=== PATIENT | male | born 1990 | race Caucasian/White ===

== ENCOUNTER 2020-11-06 20:22 | Emergency (ER) | payer SELFPAY ==
--- NOTE | 2020-11-06 20:30 | ED EENT ---
History of Present Illness General Stated Complaint: FOREIGN BODY IN LEFT EYE History of Present Illness Date Seen by Provider: Nov 06, 2020 Time Seen by Provider: 20:30 Initial Comments 29-year-old male presents with something in his left eye since 3 AM. Work outdoors yesterday, but did not feel anything get into his eye or have any eye trauma. Denies any change of vision, tearing or drainage from his eye. States he can see something just below his pupil. Try to move it with a Q-tip at home but was unable. Does have some discomfort with opening and closing his eye. Allergies and Home Medications Allergies Coded Allergies: No Known Drug Allergies (Unverified , 11/06/20) Patient Home Medication List Home Medication List Reviewed: Yes Review of Systems Review of Systems Constitutional: no symptoms reported Eyes: See HPI; Denies Drainage; Foreign Body Sensation; Denies Inflammation, Denies Pain, Denies Photophobia Ears: No Symptoms Reported Past [id number] Hx Patient Social History Tobacco Use?: No Physical Exam Vital Signs Vital Signs - First Documented 11/06/20 20:27 Pulse 79 Resp 18 B/P (MAP) 157/91 (113) Pulse Ox 99 O2 Delivery Room Air Height, Weight, BMI Height: '" Weight: lbs. oz. kg; BMI Method: General Appearance: WD/WN, no apparent distress Eyes: left eye foreign body (lower central cornea- tiny black spec seen only w magnification); bilateral eye normal inspection, bilateral eye PERRL, bilateral eye EOMI Neurologic/Psychiatric: no motor/sensory deficits, alert, normal mood/affect, oriented x 3 Procedures/Interventions Eye : Location: left eye Eye FB Removal: removal w/ cotton swab Eye Irrigated w/ Saline (ccs): 5 Anesthesia (gtts): Tetracaine Intraocular Pressure: (L) eye (MM) Progress/Results/Core Measures Results/Orders My Orders Orders - YULIA MILES DO Tetracaine 0.5% Ophth Ruthy Sdv (Tetracai (11/06/20 20:45) Fluorescein Strips ([id number]-L-Qkweza) (11/06/20 20:45) Balanced Salt Irrigation Soln (Bss Irrig (11/06/20 20:45) Tetracaine 0.5% Ophth Ruthy Sdv (Tetracai (11/06/20 20:35) Medications Given in ED Current Medications Medications Dose Ordered Sig/Lacey Route Start Time Stop Time Status Last Admin Dose Admin Balanced Salt Solution 15 ml ONCE ONCE IR 11/06/20 20:45 11/06/20 20:46 DC 11/06/20 20:38 15 ML Fluorescein Sodium 1 mg ONCE ONCE OU 11/06/20 20:45 11/06/20 20:46 DC 11/06/20 20:38 1 MG Tetracaine HCl 5 ml ONCE ONCE OP 11/06/20 20:45 11/06/20 20:46 DC 11/06/20 20:36 4 ML Vital Signs/I&O 11/06/20 20:27 Pulse 79 Resp 18 B/P (MAP) 157/91 (113) Pulse Ox 99 O2 Delivery Room Air Departure Impression Primary Impression: Foreign body of cornea Qualified Codes: T15.02XA - Foreign body in cornea, left eye, initial encounter Disposition: HOME, SELF-CARE Condition: Unchanged Departure-Patient Inst. Referrals: NO,LOCAL PHYSICIAN (PCP/Family) Primary Care Physician Patient Instructions: Foreign Body in Eye (DC) Add. Discharge Instructions: Follow up with a local eye doctor this week if you are having any further eye irritation or concerns. The foreign body has been completely removed from you left eye and there does not appear to be any damage to your cornea YULIA MILES DO Nov 06, 2020 20:30
[2020-11-06] MEDS ORDERED: TETRACAINE 0.5% OPHTH SOLN 4 ML BTL (SINGLE DOSE ONLY) ONE (20:35)
[2020-11-06] MEDS ORDERED: FLUORESCEIN (FLUOR-I-STRIPS) 1 MG STRP OU ONE (20:45)
[2020-11-06] MEDS ORDERED: BSS 15 ML IR ONE (20:45)
[2020-11-06] MEDS ORDERED: TETRACAINE 0.5% OPHTH SOLN 4 ML BTL (SINGLE DOSE ONLY) OP ONE (20:45)
[2020-11-06 20:50] VITALS: BP 157/91
== END 2020-11-06 20:50 | disposition home or self-care (01) ==
LOC: ER FS 20:26
DX: T15.02XA Foreign body in cornea, left eye, initial encounter (principal)
CPT/HCPCS: 99282